=== PATIENT | male | born 1990 | race Caucasian/White ===

== ENCOUNTER 2017-05-29 14:27 | Emergency (ER) | payer MEDICAID ==
[~2017-05-29] VITALS: Ht 175.3 cm; Wt 77.1 kg
[2017-05-29 14:30] VITALS: BP_SYST 118
--- NOTE | 2017-05-29 16:00 | NUR ---
Pt placed in chair for cough, sore throat, fever, n/v for the past 5 days. Pt was afebrile today in ER. No other injuries/complaints per pt or noted.
--- NOTE | 2017-05-29 16:08 | NUR ---
ER at bedside examining patient.
[2017-05-29 16:40] VITALS: BP_SYST 119
--- NOTE | 2017-05-29 16:40 | NUR ---
Patient given written and verbal discharge instructions and verbalizes understanding. ER MD discussed with patient the results and treatment provided. Patient in stable condition. ID arm band removed. Rx of Promethazine and Ibuprofen given. [place] bandage placed on left lower extremity and pt given crutches to assist in ambulation. Patient educated on pain management and to follow up with PMD within 2-3days. Pain Scale 8/10; pt and MD agreeable to discharge home. Opportunity for questions provided and answered.
== END 2017-05-29 16:40 | disposition home or self-care (01) ==
LOC: SED 14:27
DX: J06.9 Acute upper respiratory infection, unspecified (principal)
CPT/HCPCS: 36415; 86710; 99284